=== PATIENT | female | born 1975 | race American Indian/Alaskan Native ===

== ENCOUNTER 2017-04-20 09:38 | Emergency (ER) | payer MEDICAID ==
[2017-04-20 10:28] VITALS: BMI 29.0
--- NOTE | 2017-04-20 10:44 | ED PDOC ---
Arrival/HPI - General Time Seen by Provider: 04/20/17 10:15 Historian: Patient - History of Present Illness Narrative History of Present Illness (Text): 04/20/17 10:42 41yo female present with complaint of right foot pain x one week. she notes that pain is usually on her heel, constant and worse with weight bearing. She did not take any medication for the pain. Denies trauma, swelling, redness, any other complaint. Past Medical History - Provider Review Nursing Documentation Reviewed: Yes Family/Social History - Physician Review Nursing Documentation Reviewed: Yes Family/Social History: Unknown Family HX Allergies/Home Meds Allergies/Adverse Reactions: Allergies No Known Allergies Allergy (Verified 04/20/17 10:28) Review of Systems - Physician Review All systems were reviewed & negative as marked: Yes - Review of Systems Constitutional: Normal Eyes: Normal ENT: Normal Respiratory: Normal Cardiovascular: Normal Gastrointestinal: Normal Genitourinary Female: Normal Musculoskeletal: Arthralgias (right foot pain) Skin: Normal Neurological: Normal Endocrine: Normal Hemo/Lymphatic: Normal Psychiatric: Normal Physical Exam Vital Signs Reviewed: Yes Vital Signs Temp Pulse Resp BP Pulse Ox 04/20/17 12:24 67 18 116/73 100 04/20/17 11:09 68 18 118/75 100 04/20/17 09:39 98.5 F 66 16 122/71 100 Temperature: Afebrile Blood Pressure: Normal Pulse: Regular Respiratory Rate: Normal Appearance: Positive for: Well-Appearing, Non-Toxic, Comfortable Pain Distress: None Mental Status: Positive for: Alert and Oriented X 3 - Systems Exam Head: Present: Atraumatic, Normocephalic Pupils: Present: PERRL Extroacular Muscles: Present: EOMI Conjunctiva: Present: Normal Mouth: Present: Moist Mucous Membranes Neck: Present: Normal Range of Motion Respiratory/Chest: Present: Clear to Auscultation, Good Air Exchange. No: Respiratory Distress, Accessory Muscle Use Cardiovascular: Present: Regular Rate and Rhythm, Normal S1, S2. No: Murmurs Abdomen: Present: Normal Bowel Sounds. No: Tenderness, Distention, Peritoneal Signs Back: Present: Normal Inspection Upper Extremity: Present: Normal Inspection. No: Cyanosis, Edema Lower Extremity: Present: NORMAL PULSES, Normal ROM, Neurovascularly Intact, Capillary Refill < 2 s. No: Edema, CALF TENDERNESS, Tenderness, Swelling, Erythema, Deformity, Temperature Abnormalties Neurological: Present: GCS=15, CN II-XII Intact, Speech Normal Skin: Present: Warm, Dry, Normal Color. No: Rashes Psychiatric: Present: Alert, Oriented x 3, Normal Insight, Normal Concentration Medical Decision Making ED Course and Treatment: 04/20/17 12:30 Right foot xray - No acute fracture Result was DW the pt. she was DC home with Naprosyn and flexeril. Her pain was controlled in ED and she was ambulatory. She was referred to a podiatrists. TRT ED for any new or worsening symptoms - RAD Interpretation Radiology Orders: 04/20/17 10:29 FOOT RIGHT 3 VIEWS ROUTINE [RAD] Stat - Medication Orders Current Medication Orders: Discontinued Medications Ketorolac Tromethamine (Toradol) 60 mg IM STAT STA Stop: 04/20/17 10:30 Last Admin: 04/20/17 11:00 Dose: 60 mg Disposition/Present on Arrival - Present on Arrival Any Indicators Present on Arrival: No History of DVT/PE: No History of Uncontrolled Diabetes: No Urinary Catheter: No History of Decub. Ulcer: No History Surgical Site Infection Following: None - Disposition Have Diagnosis and Disposition been Completed?: Yes Diagnosis: Foot pain Disposition: HOME/ ROUTINE Disposition Time: 11:45 Patient Plan: Discharge Condition: STABLE Discharge Instructions (ExitCare): Arthralgia (ED) Additional Instructions: Follow up with a [employer] Return to ED for any new or worsening symptoms Prescriptions: Naproxen [Naprosyn] 500 mg PO BID #20 tablet traMADol [Ultram] 50 mg PO TID #9 tab Referrals: Walker Melton MD [Primary Care Provider] - Follow up with primary Cristobal Branch DPM [Staff Provider] - Follow up with primary
[2017-04-20 10:47] VITALS: TEMP 98.5; O2SAT 100
[2017-04-20 11:10] VITALS: RESP 18
--- NOTE | 2017-04-20 12:23 | RAD ---
PROCEDURE: Right Foot Radiographs. HISTORY: foot pain COMPARISON: None. FINDINGS: BONES: Normal. No fracture. JOINTS: Normal. SOFT TISSUES: Normal. OTHER FINDINGS: None. IMPRESSION: Normal right foot radiographs.
[2017-04-20 12:25] VITALS: BP 116/73; PULSE 67
== END 2017-04-20 12:30 | disposition home or self-care (01) ==
LOC: ED 09:38
DX: M79.671 Pain in right foot (principal)
CPT/HCPCS: 73630; 96372; 99285; J1885

== ENCOUNTER 2018-01-14 15:03 | Emergency (ER) | payer MEDICAID ==
[2018-01-14 15:04] VITALS: BMI 29.0
--- NOTE | 2018-01-14 15:08 | ED PDOC ---
Arrival/HPI - General Time Seen by Provider: 01/14/18 15:07 Historian: Patient - History of Present Illness Narrative History of Present Illness (Text): 01/14/18 15:07 42 y/o female, no significant pmh, nkda, c/o throat pain with painful to swallow x 3 days. aching pain, aggravated by swallowing, no coughing, admits bilateral ear pain when swallowing, no drooling, no difficulty swallowing, no night sweat, no rash, no difficulty turning the neck, no other medical or psychological complaints. Past Medical History - Provider Review Nursing Documentation Reviewed: Yes - Cardiac Hx Cardiac Disorders: Yes Hx Hypertension: Yes - Pulmonary Hx Respiratory Disorders: No (denies) - Neurological Hx Neurological Disorder: No (denies) - HEENT Hx HEENT Disorder: No (denies) - Renal Hx Renal Disorder: No (denies) - Endocrine/Metabolic Hx Endocrine Disorders: No (denies) - Hematological/Oncological Hx Blood Disorders: Yes Hx Sickle Cell Disease: Yes - Integumentary Hx Dermatological Disorder: No - Musculoskeletal/Rheumatological Hx Musculoskeletal Disorders: No - Gastrointestinal Hx Gastrointestinal Disorders: No - Genitourinary/Gynecological Hx Genitourinary Disorders: No (denies) - Psychiatric Hx Psychophysiologic Disorder: No (denies) Hx Substance Use: No - Anesthesia Hx Anesthesia: No Family/Social History - Physician Review Nursing Documentation Reviewed: Yes Family/Social History: Unknown Family HX Smoking Status: Never Smoked Hx Alcohol Use: Yes Hx Substance Use: No Allergies/Home Meds Allergies/Adverse Reactions: Allergies No Known Allergies Allergy (Verified 04/20/17 10:28) Review of Systems - Review of Systems Constitutional: absent: Fatigue, Fevers Eyes: absent: Vision Changes ENT: Sore Throat, Other (ear pain). absent: Hearing Changes, Rhinorrhea Respiratory: absent: SOB, Cough Cardiovascular: absent: Chest Pain Gastrointestinal: absent: Abdominal Pain, Nausea, Vomiting Genitourinary Female: absent: Vaginal Bleeding Musculoskeletal: absent: Arthralgias, Back Pain Skin: absent: Rash, Pruritis Neurological: absent: Headache Psychiatric: absent: Anxiety, Depression, Suicidal Ideation Physical Exam Vital Signs Reviewed: Yes Vital Signs Temp Pulse Resp BP Pulse Ox 01/14/18 16:15 98.7 F 92 H 18 102/66 96 Temperature: Afebrile Blood Pressure: Normal Pulse: Regular Respiratory Rate: Normal Appearance: Positive for: Well-Appearing, Non-Toxic, Comfortable Pain Distress: Moderate Mental Status: Positive for: Alert and Oriented X 3 - Systems Exam Head: Present: Atraumatic, Normocephalic Pupils: Present: PERRL Extroacular Muscles: Present: EOMI Conjunctiva: Present: Normal Ears: Present: NORMAL TM, Normal Canal. No: Erythema, TM Bulging, Fluid, TM Perf Mouth: Present: Moist Mucous Membranes Pharnyx: Present: ERYTHEMA, EXUDATE, TONSILS ENLARGED. No: Peritonsilar Swelling, Uvular Deviation, Muffled/Hoarse Voice, Strider, Soft Palate/Uvular Edema Nose (External): Present: Atraumatic. No: Abrasion, Contusion, Laceration, Lesions Nose (Internal): Present: Normal Inspection, No Active Bleeding. No: Rhinorrhea , Septal Hematoma, Epistaxis Neck: Present: Normal Range of Motion, Trachea Midline. No: Meningeal Signs, MIDLINE TENDERNESS, Paraspinal Tenderness Respiratory/Chest: Present: Clear to Auscultation, Good Air Exchange. No: Respiratory Distress, Accessory Muscle Use, Wheezes, Decreased Breath Sounds, Rales, Retracting, Rhonchi, Tachypneic, Tender to Palpation Cardiovascular: Present: Regular Rate and Rhythm, Normal S1, S2. No: Murmurs Abdomen: Present: Normal Bowel Sounds. No: Tenderness, Distention, Peritoneal Signs Back: Present: Normal Inspection Upper Extremity: Present: Normal Inspection. No: Cyanosis, Edema Lower Extremity: Present: Normal Inspection. No: Edema Neurological: Present: GCS=15, Speech Normal, Motor Func Grossly Intact, Gait Normal, Memory Normal Skin: Present: Warm, Dry, Normal Color. No: Rashes Psychiatric: Present: Alert, Oriented x 3, Normal Insight, Normal Concentration Medical Decision Making ED Course and Treatment: 01/14/18 16:26 -Urine hcg is negative -VItally stable, tolerating po fluid and solid. -toradol/decadron/augmentin -Discharge home with augmentin, motrin, soft food diet, stay hydrated, follow up with your own pmd and ENT within 2 days, return to the ER for any new or worsening signs or symptoms. - Medication Orders Current Medication Orders: Discontinued Medications Amoxicillin/Clavulanate Potassium (Augmentin 875 Mg-125 Mg Tab) 1 tab PO STAT STA PRN Reason: Protocol Stop: 01/14/18 16:22 Last Admin: 01/14/18 16:31 Dose: 1 tab Dexamethasone (Decadron Inj) 8 mg IM STAT STA Stop: 01/14/18 16:22 Last Admin: 01/14/18 16:31 Dose: 8 mg IM Administration Charges Document 01/14/18 16:31 EWO (Rec: 01/14/18 16:31 [facility] [id number]) Injection Site MAR Injection Site Left Vastus Lateralis Charges for Administration # of IM Administrations 1 Ketorolac Tromethamine (Toradol) 60 mg IM STAT STA Stop: 01/14/18 16:22 Last Admin: 01/14/18 16:31 Dose: 60 mg MAR Pain Assessment Document 01/14/18 16:31 EWO (Rec: 01/14/18 16:31 [facility] [id number]) Pain Reassessment Is this a pain reassessment? No Sleep Is patient sleeping during reassessment? 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 Disposition/Present on Arrival - Present on Arrival Any Indicators Present on Arrival: No History of DVT/PE: No History of Uncontrolled Diabetes: No Urinary Catheter: No History of Decub. Ulcer: No History Surgical Site Infection Following: None - Disposition Have Diagnosis and Disposition been Completed?: Yes Diagnosis: Tonsillitis Disposition: HOME/ ROUTINE Disposition Time: 16:27 Patient Plan: Discharge Patient Problems: Current Active Problems Problem Status Onset Tonsillitis Acute Condition: GOOD Additional Instructions: -Discharge home with augmentin, motrin, soft food diet, stay hydrated, follow up with your own pmd and ENT within 2 days, return to the ER for any new or worsening signs or symptoms. Prescriptions: Amoxicillin/Clavulanate [Augmentin 875 MG-125 MG] 1 tab PO BID #20 tab Ibuprofen [Motrin] 600 mg PO QID PRN #30 tab PRN Reason: Other Referrals: Domenico,Micah J, [Staff Provider] - Follow up with primary Forms: WORK NOTE
[2018-01-14 16:16] VITALS: BP 102/66; PULSE 92; RESP 18; TEMP 98.7; O2SAT 96
[2018-01-14] MEDS ORDERED: Amoxicillin-Clav 875-125 mg Tab PO STA (16:21)
== END 2018-01-14 16:38 | disposition home or self-care (01) ==
LOC: ED 15:03
DX: J03.90 Acute tonsillitis, unspecified (principal)
CPT/HCPCS: 96372; 99282; J1100; J1885

== ENCOUNTER 2018-03-14 10:06 | Emergency (ER) | payer MEDICAID ==
[2018-03-14 10:28] VITALS: BMI 28.0
[2018-03-14 10:34] VITALS: TEMP 98.5
[2018-03-14] MEDS ORDERED: Sodium Chloride 0.9% 1,000 ML IV STA (10:41)
[2018-03-14 11:01] LABS: URINE BILIRUBIN NEGATIVE (NEGATIVE); URINE BLOOD NEGATIVE (NEGATIVE); URINE GLUCOSE (UA) NEGATIVE (NEGATIVE); URINE LEUKOCYTE ESTERASE TRACE Leu/uL (NEGATIVE); URINE PROTEIN NEGATIVE mg/dL (<30 mg/dL); URINE UROBILINOGEN 0.2 E.U./dL (<1 E.U./dL)
[2018-03-14 11:03] LABS: URINE APPEARANCE CLEAR (CLEAR); URINE COLOR YELLOW (YELLOW)
[2018-03-14 11:04] LABS: HCG,QUALITATIVE URINE NEGATIVE (NEGATIVE)
[2018-03-14 11:09] LABS: URINE BACTERIA MOD (NEG); URINE RBC 0 - 2 /hpf (0-2)
[2018-03-14] MEDS ORDERED: Iohexol 350 MG/100 ML VIAL ONE (11:23)
[2018-03-14 11:33] LABS: BASO # 0.02 K/mm3 (0.0-2.0); BASO % 0.3 % (0.0-3.0); EOS # 0.1 (0.0-0.7); EOS % 1.5 % (1.5-5.0); GRAN # 3.25 (1.4-6.5); GRAN % 53.2 % (50.0-68.0); HEMOGLOBIN 10.5 g/dL (12.0-16.0); LYMPH # 2.2 (1.2-3.4); LYMPH % 35.7 % (22.0-35.0); MEAN CELL VOLUME 67.6 fl (80.0-105.0); MEAN CORPUSCULAR HEMOGLOBIN 21.6 pg (25.0-35.0); MEAN CORPUSCULAR HGB CONC 31.9 g/dl (31.0-37.0); MEAN PLATELET VOLUME 8.4 fl (7.0-11.0); MONO # 0.6 (0.1-0.6); MONO % 9.3 % (1.0-6.0); RBC 4.87 10^6/uL (3.5-6.1); RED CELL DISTRIBUTION WIDTH 18.1 % (11.5-14.5); WHITE BLOOD COUNT 6.1 10^3/ul (4.5-11.0)
[2018-03-14 11:43] LABS: ALB/GLOB RATIO 1.1 (1.1-1.8); ALBUMIN 4.2 g/dL (3.0-4.8); ALT/SGPT 20 U/L (7-56); AST/SGOT 26 U/L (14-36); BLOOD UREA NITROGEN 8 mg/dL (7-21); CALCIUM 8.8 mg/dL (8.4-10.5); GFR AFRICAN-AMERICAN > 60; GFR NON-AFRICAN AMERICAN > 60; LIPASE 27 U/L (23-300)
--- NOTE | 2018-03-14 11:54 | ED PDOC ---
Arrival/HPI - General Chief Complaint: Abdominal Pain Time Seen by Provider: 03/14/18 10:41 Historian: Patient - History of Present Illness Narrative History of Present Illness (Text): 03/14/18 11:37 42-year-old female with a history of fibroids presents today with a one-day history of lower abdominal pain radiating to the right flank. Patient states the pain is across the entire lower abdomen and radiates into the right flank. She denies vaginal bleeding or vaginal discharge. She denies dysuria urinary frequency or urgency. Patient complaining of nausea no vomiting. Patient denies diarrhea or constipation. No medications have been taken for pain at home. Patient denies decreased appetite. Patient denies fevers or chills. Past Medical History - Provider Review Nursing Documentation Reviewed: Yes - Travel History Have you recently traveled outside [place] w/in the past 3 mons?: No - Infectious Disease Hx of Infectious Diseases: None - Tetanus Immunization Tetanus Immunization: Unknown - Cardiac Hx Cardiac Disorders: Yes Hx Hypertension: Yes - Pulmonary Hx Respiratory Disorders: No (denies) - Neurological Hx Neurological Disorder: No (denies) - HEENT Hx HEENT Disorder: No (denies) - Renal Hx Renal Disorder: No (denies) - Endocrine/Metabolic Hx Endocrine Disorders: No (denies) - Hematological/Oncological Hx Blood Disorders: Yes Hx Sickle Cell Disease: Yes - Integumentary Hx Dermatological Disorder: No - Musculoskeletal/Rheumatological Hx Musculoskeletal Disorders: No - Gastrointestinal Hx Gastrointestinal Disorders: No - Genitourinary/Gynecological Other/Comment: ovarian cyst,fibroids - Psychiatric Hx Psychophysiologic Disorder: No (denies) Hx Substance Use: No - Anesthesia Hx Anesthesia: No Family/Social History - Physician Review Nursing Documentation Reviewed: Yes Family/Social History: Unknown Family HX Smoking Status: Never Smoked Hx Alcohol Use: Yes Frequency of alcohol use: Socially Hx Substance Use: No Allergies/Home Meds Allergies/Adverse Reactions: Allergies No Known Allergies Allergy (Verified 03/14/18 10:34) Review of Systems - Review of Systems Constitutional: absent: Fatigue, Fevers Respiratory: absent: SOB, Cough Cardiovascular: absent: Chest Pain, Palpitations Gastrointestinal: Abdominal Pain, Nausea. absent: Constipation, Diarrhea, Vomiting Genitourinary Female: absent: Dysuria, Frequency, Hematuria, Vaginal Bleeding, Vaginal Discharge Musculoskeletal: Back Pain. absent: Arthralgias, Neck Pain Skin: absent: Rash, Pruritis Neurological: absent: Headache, Dizziness Psychiatric: absent: Anxiety, Depression Physical Exam Vital Signs Reviewed: Yes Vital Signs Temp Pulse Resp BP Pulse Ox 03/14/18 12:57 79 18 118/71 98 03/14/18 10:28 98.5 F 86 18 120/79 98 Temperature: Afebrile Blood Pressure: Normal Pulse: Regular Respiratory Rate: Normal Appearance: Positive for: Well-Appearing, Non-Toxic, Comfortable Pain Distress: None Mental Status: Positive for: Alert and Oriented X 3 - Systems Exam Head: Present: Atraumatic Mouth: Present: Moist Mucous Membranes Neck: Present: Normal Range of Motion Respiratory/Chest: Present: Clear to Auscultation, Good Air Exchange. No: Respiratory Distress, Accessory Muscle Use Cardiovascular: Present: Regular Rate and Rhythm, Normal S1, S2. No: Murmurs Abdomen: Present: Tenderness (minimal lower abdominal tenderness). No: Distention, Peritoneal Signs, Rebound, Guarding Back: Present: Normal Inspection. No: CVA Tenderness, Midline Tenderness, Paraspinal Tenderness Upper Extremity: Present: Normal ROM Lower Extremity: Present: Normal ROM Neurological: Present: GCS=15 Skin: Present: Warm, Dry, Normal Color. No: Rashes Psychiatric: Present: Alert, Oriented x 3 Medical Decision Making ED Course and Treatment: 03/14/18 15:05 Patient is nontoxic well appearing with stable vital signs presenting with abdominal pain CBC wnl CMP wnl Lipase wnl Urinalysis + leukocytes Ultrasound; FINDINGS: UTERUS: Measures 6.2 x 6.4 x 9.8 cm. Mildly enlarged, heterogeneous uterus Posterior fibroid 3.8 x 4.8 x 3.3 cm. Fundal fibroid 3.5 x 3.1 cm. Sub serosal anterior fibroid 1.7 x 1.8 cm. ENDOMETRIUM: Measures 9.4 mm in diameter. Trace fluid in the endometrial canal. In CERVIX: No cervical abnormality identified. RIGHT OVARY: Measures 3.2 x 2.3 x 3 cm. No solid mass. Normal flow. Simple cyst 1.3 x 1.8 x 2.1 cm LEFT OVARY: Measures 4 x 3.6 x 1.7 cm. No solid mass. Normal flow. Multiple subcentimeter follicles. FREE FLUID: No significant free fluid noted. OTHER FINDINGS: None. IMPRESSION: Enlarged heterogeneous, myomatous uterus. Simple cyst right ovary accounting for findings on CT scan. CAT scan: FINDINGS: LOWER THORAX: Unremarkable. LIVER: Unremarkable. No gross lesion or ductal dilatation. GALLBLADDER AND BILE DUCTS: Unremarkable. PANCREAS: Unremarkable. No gross lesion or ductal dilatation. SPLEEN: Unremarkable. ADRENALS: Unremarkable. No mass. KIDNEYS AND URETERS: Unremarkable. No hydronephrosis. No solid mass. Incidental finding(s): Right renal cysts, the largest measures 4 cm. VASCULATURE: Unremarkable. No aortic aneurysm. BOWEL: Unremarkable. No obstruction. No gross mural thickening. APPENDIX: Normal appendix. PERITONEUM: Unremarkable. No free fluid. No free air. LYMPH NODES: Unremarkable. No enlarged lymph nodes. BLADDER: Unremarkable. REPRODUCTIVE: Enlarged myomatous uterus. Questionable enlargement of the right adnexa with possible cysts. If clinically appropriate, pelvic ultrasound recommended. BONES: No acute fracture. OTHER FINDINGS: None. IMPRESSION: Enlarged myomatous uterus. Questionable cysts, enlargement of the right adnexa. Additional benign and/or incidental findings described above. Patient reassessment:pt non toxic well appearing; no distress. Discussed all results with patient in depth keflex given for UTI. pt advised to f/u with pmd and RADIOLOGY RN. advised patient of ovarian cysts and uterine fibroids; pt states she knows she has fibroids. stressed importance of immediate return if symptoms worsen persist or if new concerning symptoms develop Patient verbalizes understanding of discharge instructions and need for immediate followup. all aspects of this case were discussed the attending of record. Impression: Abdominal pain, ovarian cyst, UTI, fibroids Motrin every 6 hours as needed for pain keflex; 1 capsule twice daily x 7 days. Follow up with primary care physician within the next 2 days Follow up with the RADIOLOGY RN within the next 2 days. Return immediately if symptoms worsen persist or if new symptoms develop: High fevers, increasing pain, vomiting, diarrhea or any other concerning symptoms develop Reassessment Condition: Re-examined, Improved - Lab Interpretations Lab Results: 03/14/18 11:25 03/14/18 11:25 Lab Results 03/14/18 11:25: WBC 6.1, RBC 4.87, Hgb 10.5 L, Hct 32.9 L, MCV 67.6 L, MCH 21.6 L, MCHC 31.9, RDW 18.1 H, Plt Count 387, MPV 8.4, Gran % 53.2, Lymph % (Auto) 35.7 H, [place] % (Auto) 9.3 H, Eos % (Auto) 1.5, Baso % (Auto) 0.3, Gran # 3.25, Lymph # (Auto) 2.2, [place] # (Auto) 0.6, Eos # (Auto) 0.1, Baso # (Auto) 0.02 03/14/18 11:25: Sodium 142, Potassium 3.2 L, Chloride 103, Carbon Dioxide 29, Anion Gap 14, BUN 8, Creatinine 0.8, Est GFR ( Amer) > 60, Est GFR (Non- Af Amer) > 60, Random Glucose 94, Calcium 8.8, Total Bilirubin 0.6, AST 26, ALT 20, Alkaline Phosphatase 76, Total Protein 7.9, Albumin 4.2, Globulin 3.7, Albumin/Globulin Ratio 1.1, Lipase 27 03/14/18 10:49: Urine Color Yellow, Urine Appearance Clear, Urine pH 6.0, Ur Specific [place] 1.020, Urine Protein Negative, Urine Glucose (UA) Negative, Urine Ketones Negative, Urine Blood Negative, Urine Nitrate Negative, Urine Bilirubin Negative, Urine Urobilinogen 0.2, Ur Leukocyte Esterase Trace H, Urine RBC 0 - 2, Urine WBC 2 - 5, Ur Epithelial Cells 6 - 8, Urine Bacteria Mod , Urine HCG, Qual Negative - RAD Interpretation Radiology Orders: 03/14/18 11:07 ABD & PELVIS IV CONTRAST ONLY [CT] Stat 03/14/18 14:13 TRANSVAGINAL [US] Stat - Medication Orders Current Medication Orders: Discontinued Medications Cephalexin Monohydrate (Keflex) 500 mg PO STAT STA PRN Reason: Protocol Stop: 03/14/18 15:04 Last Admin: 03/14/18 15:30 Dose: 500 mg Sodium Chloride (Sodium Chloride 0.9%) 1,000 mls @ 999 mls/hr IV .Q1H1M STA Stop: 03/14/18 11:41 Last Admin: 03/14/18 11:37 Dose: 999 mls/hr eMAR Start Stop Document 03/14/18 11:37 SS (Rec: 03/14/18 11:37 SS [id number]) Intravenous Solution Start Date 03/14/18 Start Time 11:37 End Date 03/14/18 End time 12:37 Total Infusion Time 60 Ketorolac Tromethamine (Toradol) 30 mg IVP STAT STA Stop: 03/14/18 11:18 Last Admin: 03/14/18 11:37 Dose: Not Given Non-Admin Reason: Patient Refused Ondansetron HCl (Zofran Inj) 4 mg IVP STAT STA Stop: 03/14/18 11:19 Last Admin: 03/14/18 11:37 Dose: 4 mg IVP Administration Document 03/14/18 11:37 SS (Rec: 03/14/18 11:37 SS [id number]) Charges for Administration # of IVP Administrations 1 Disposition/Present on Arrival - Present on Arrival Any Indicators Present on Arrival: No History of DVT/PE: No History of Uncontrolled Diabetes: No Urinary Catheter: No History of Decub. Ulcer: No History Surgical Site Infection Following: None - Disposition Have Diagnosis and Disposition been Completed?: Yes Diagnosis: Abdominal pain, Urinary tract infection, Ovarian cyst Disposition: HOME/ ROUTINE Disposition Time: 15:00 Patient Plan: Discharge Patient Problems: Current Active Problems Problem Status Onset Abdominal pain Acute Ovarian cyst Acute Urinary tract infection Acute Condition: GOOD Discharge Instructions (ExitCare): Urinary Tract Infections in Adults, Flank Pain, Acute Abdomen (Belly Pain), Adult (DC), Ovarian Cyst (DC) Additional Instructions: Motrin every 6 hours as needed for pain keflex; 1 capsule twice daily x 7 days. Follow up with primary care physician within the next 2 days Follow up with the RADIOLOGY RN within the next 2 days. Return immediately if symptoms worsen persist or if new symptoms develop: High fevers, increasing pain, vomiting, diarrhea or any other concerning symptoms develop Prescriptions: Cephalexin [Keflex] 500 mg PO BID #14 capsule Ibuprofen [Motrin] 600 mg PO Q6H PRN #20 tab PRN Reason: pain/fever reduction Referrals: Cordelia Wall MD [Medical Doctor] - Follow up with primary Marcelo Arenas DO [Staff Provider] - Follow up with primary Forms: [employer] ([place]), WORK NOTE
[2018-03-14 12:58] VITALS: BP 118/71
--- NOTE | 2018-03-14 13:19 | CT ---
PROCEDURE: CT Abdomen and Pelvis with contrast HISTORY: lower abd pain COMPARISON: None. TECHNIQUE: Contrast dose: 100 cc Omnipaque 350 Radiation dose: Total exam DLP = 795.20 mGy-cm. This CT exam was performed using one or more of the following dose reduction techniques: Automated exposure control, adjustment of the mA and/or kV according to patient size, and/or use of iterative reconstruction technique. FINDINGS: LOWER THORAX: Unremarkable. LIVER: Unremarkable. No gross lesion or ductal dilatation. GALLBLADDER AND BILE DUCTS: Unremarkable. PANCREAS: Unremarkable. No gross lesion or ductal dilatation. SPLEEN: Unremarkable. ADRENALS: Unremarkable. No mass. KIDNEYS AND URETERS: Unremarkable. No hydronephrosis. No solid mass. Incidental finding(s): Right renal cysts, the largest measures 4 cm. VASCULATURE: Unremarkable. No aortic aneurysm. BOWEL: Unremarkable. No obstruction. No gross mural thickening. APPENDIX: Normal appendix. PERITONEUM: Unremarkable. No free fluid. No free air. LYMPH NODES: Unremarkable. No enlarged lymph nodes. BLADDER: Unremarkable. REPRODUCTIVE: Enlarged myomatous uterus. Questionable enlargement of the right adnexa with possible cysts. If clinically appropriate, pelvic ultrasound recommended. BONES: No acute fracture. OTHER FINDINGS: None. IMPRESSION: Enlarged myomatous uterus. Questionable cysts, enlargement of the right adnexa. Additional benign and/or incidental findings described above.
--- NOTE | 2018-03-14 15:37 | US ---
HISTORY: pain COMPARISON: March 14, 2018. CT abdomen and pelvis None available. TECHNIQUE: Transabdominal, transvaginal. Real -time technique with 2D, duplex and color Doppler. FINDINGS: UTERUS: Measures 6.2 x 6.4 x 9.8 cm. Mildly enlarged, heterogeneous uterus Posterior fibroid 3.8 x 4.8 x 3.3 cm. Fundal fibroid 3.5 x 3.1 cm. Sub serosal anterior fibroid 1.7 x 1.8 cm. ENDOMETRIUM: Measures 9.4 mm in diameter. Trace fluid in the endometrial canal. In CERVIX: No cervical abnormality identified. RIGHT OVARY: Measures 3.2 x 2.3 x 3 cm. No solid mass. Normal flow. Simple cyst 1.3 x 1.8 x 2.1 cm LEFT OVARY: Measures 4 x 3.6 x 1.7 cm. No solid mass. Normal flow. Multiple subcentimeter follicles. FREE FLUID: No significant free fluid noted. OTHER FINDINGS: None. IMPRESSION: Enlarged heterogeneous, myomatous uterus. Simple cyst right ovary accounting for findings on CT scan.
[2018-03-14 16:22] VITALS: PULSE 82; O2SAT 99
[2018-03-14 16:23] VITALS: RESP 18
== END 2018-03-14 16:22 | disposition home or self-care (01) ==
LOC: ED 10:06
DX: N39.0 Urinary tract infection, site not specified (principal); N83.209 Unspecified ovarian cyst, unspecified side; R10.9 Unspecified abdominal pain; I10 Essential (primary) hypertension
CPT/HCPCS: 74177; 76830; 80053; 81001; 83690; 84703; 85025; 87086; 96361; 96374; 99284; J2405; J7040; Q9967